=== PATIENT | female | born 1940 | race Caucasian/White ===

== ENCOUNTER → 2016-08-12 | Outpatient (CLI) | payer MEDICARE ==
[~2016-08-12] MED LIST: 'XANAX0.25 MG; ALLOPURINOL100 MG; AMLODIPINE10 MG; ASPIRIN81 M1; BENAZEPRIL40 MG; COLCHICINE0.6 MG; FAMOTIDINE20 MG; FUROSEMIDE40 MG; INDOMETHACIN25 MG; KLOR-CON M2020 MEQ; NORVASC5 MG; PRILOSEC20 M1 PO; PROVENTIL0.09 MG/AC; SIMVASTATIN20 MG; [UNRECOGNIZED DRUG - REMARK]
[2016-08-12 10:08] LABS: FOLIC ACID 15.4 ng/mL (>5.38)
[2016-08-13 09:06] LABS: RHEUMATOID ARTHRITIS FACTOR <10.0 IU/mL (0.0-13.9)
[2016-08-13 12:07] LABS: SJOGREN ANTI-SS-A <0.2 AI (0.0-0.9); SJOREN AB, ANTI-SS-B <0.2 AI (0.0-0.9)
[2016-08-13 15:07] LABS: ANGIOTENSIN-CONVERTING ENZYME 31 U/L (14-82)
[2016-08-13 16:09] LABS: A/G RATIO 1.3 (0.7-1.7); ALBUMIN 3.5 g/dL (2.9-4.4); ALPHA-1-GLOBULIN 0.2 g/dL (0.0-0.4); BETA GLOBULIN 1.1 g/dL (0.7-1.3); FREE KAPPA LIGHT CHAINS 35.01 mg/L (3.30-19.40); FREE LAMBDA LIGHT CHAINS 22.89 mg/L (5.71-26.30); GAMMA GLOBULIN 0.9 g/dL (0.4-1.8); GLOBULIN, TOTAL 2.9 g/dL (2.2-3.9); KAPPA/LAMBDA RATIO 1.53 (0.26-1.65); M-SPIKE Not Observed g/dL (Not Observed); TOTAL PROTEIN, SERUM 6.4 g/dL (6.0-8.5)
== END | disposition home or self-care (01) ==
LOC: LAB 08:13
PROVIDERS: Psychiatry & Neurology Neurology
DX: Z79.899 Other long term (current) drug therapy (principal)

== ENCOUNTER 2016-11-14 09:24 | Emergency (ER) | payer MEDICARE ==
[~2016-11-14] VITALS: Ht 149.8 cm; Wt 78.0 kg
[2016-11-14 09:27] VITALS: BP 213/96
[2016-11-14] MEDS ORDERED: LOSARTAN POTASS1 TA6 PO (09:34)
[2016-11-14] MEDS ORDERED: ZEBETA10 MG PO (09:35)
[2016-11-14] MEDS ORDERED: ANTIBIOTIC O500 U/GM T (10:32)
[2016-11-14] MEDS ORDERED: KEFLEX500 M1 PO (10:32)
== END 2016-11-14 10:54 | disposition home or self-care (01) ==
LOC: ED 09:24
DX: S01.83XA Puncture wound without foreign body of other part of head, initial encounter (principal); R03.0 Elevated blood-pressure reading, without diagnosis of hypertension; W01.0XXA Fall on same level from slipping, tripping and stumbling without subsequent striking against object, initial encounter; Y93.89 Activity, other specified; Y92.89 Other specified places as the place of occurrence of the external cause; Y99.8 Other external cause status

== ENCOUNTER 2017-06-27 16:27 | Emergency (ER) | payer MEDICARE ==
[~2017-06-27] VITALS: Ht 160 cm; Wt 78.0 kg
--- NOTE | ~2017-06-27 | EKG ---
[place], [place] ELECTROCARDIOGRAM REPORT NAME: DONATO WEIR UNIT #: [id number] ROOM: DOCTOR: MUSA MANNING,KAYY BIRTHDATE: [birth year] DOS: 06/27/2017 TIME: 1641 hours. IMPRESSION: 1. Sinus rhythm. 2. Supraventricular ectopy. 3. Nonspecific ST-T changes. 4. Abnormal R-wave progression. 5. LV hypertrophy. KAYY VIGIL MD CM:EKGRPT:ELECTROCARDIOGRAM REPORT [id number] KAYY VIGIL MD
[~2017-06-27 16:27] MED LIST changes: +ANTIBIOTIC O500 U/GM T; +KEFLEX500 M1 PO; +LOSARTAN POTASS1 TA6 PO; +ZEBETA10 MG PO
[2017-06-27 16:54] LABS: BASO % 0.3 % (0.0-1.0); EOS # 0.3 10*3/uL (0.0-0.4); EOS % 3.1 % (1.0-4.0); HEMATOCRIT 41.6 % (37.0-47.0); HEMOGLOBIN 13.9 g/dl (12.0-16.0); LYMPH # 3.2 10*3/uL (1.3-4.4); MEAN CELL VOLUME 88.9 fl (81.0-99.0); MEAN CORPUSCULAR HGB 29.7 pg (27.0-31.0); MEAN CORPUSCULAR HGB CONC 33.4 g/dl (33.0-37.0); MEAN PLATELET VOLUME 10.3 fl (9.6-12.3); MONO # 0.7 10*3/uL (0.1-1.0); MONO % 6.9 % (3.0-9.0); NEUT # 6.3 10*3/uL (2.3-7.9); NEUT % 59.4 % (47.0-73.0); PLATELET COUNT AUTOMATED 250 10*3/uL (130-400); RED BLOOD COUNT 4.68 10*6/uL (4.10-5.10); RED CELL DISTRI WIDTH 13.2 % (0-14.5); WHITE BLOOD COUNT 10.7 10*3/uL (4.8-10.8)
[2017-06-27 17:00] VITALS: BP 190/96
[2017-06-27 17:08] LABS: ACT PARTIAL THROMBO TIME 25.3 SECONDS (20.8-31.5)
[2017-06-27 17:10] LABS: ALBUMIN 3.4 gm/dl (3.1-4.5); ALKALINE PHOSPHATASE 80 U/L (45-117); BUN 25 mg/dl (7-24); CHLORIDE 103 mmol/L (98-107); CREATININE 0.95 mg/dL (0.55-1.02); LIPASE 219 U/L (73-393); POTASSIUM 3.8 mmol/L (3.5-5.1); SGOT/AST 19 IU/L (3-35); SGPT/ALT 20 U/L (12-78); SODIUM 139 mmol/L (136-145); TOTAL PROTEIN 7.4 gm/dL (6.4-8.2)
[2017-06-27 17:13] LABS: TROPONIN I < 0.015 ng/ml (<0.045)
== END 2017-06-27 17:37 | disposition short-term general hospital (02) ==
LOC: ED 16:27
PROVIDERS: Emergency Medicine
DX: I62.9 Nontraumatic intracranial hemorrhage, unspecified (principal); Z79.899 Other long term (current) drug therapy; Z95.1 Presence of aortocoronary bypass graft

== ENCOUNTER → 2017-12-06 | Outpatient (CLI) | payer MEDICARE | END | disposition home or self-care (01) | LOC: RAD 15:30 | DX: M47.896 Other spondylosis, lumbar region (principal); M51.36 Other intervertebral disc degeneration, lumbar region; M99.03 Segmental and somatic dysfunction of lumbar region ==

== ENCOUNTER → 2018-04-26 | Outpatient (CLI) | payer MEDICARE | END | disposition home or self-care (01) | LOC: RAD 10:02 | DX: M51.36 Other intervertebral disc degeneration, lumbar region (principal); M47.896 Other spondylosis, lumbar region; R42 Dizziness and giddiness ==

== ENCOUNTER → 2018-05-15 | Outpatient (CLI) | payer MEDICARE | END | disposition home or self-care (01) | LOC: RAD 14:47 | DX: C64.1 Malignant neoplasm of right kidney, except renal pelvis (principal); J44.9 Chronic obstructive pulmonary disease, unspecified; Z98.890 Other specified postprocedural states ==

== ENCOUNTER → 2019-06-05 | Outpatient (CLI) | payer MEDICARE ==
[2019-06-05 15:43] LABS: ALBUMIN 3.4 gm/dl (3.1-4.5); ALKALINE PHOSPHATASE 92 U/L (45-117); BUN 27 mg/dl (7-24); CHLORIDE 106 mmol/L (98-107); CREATININE 1.07 mg/dL (0.55-1.02); POTASSIUM 4.3 mmol/L (3.5-5.1); SGOT/AST 21 IU/L (3-35); SGPT/ALT 21 U/L (12-78); SODIUM 144 mmol/L (136-145); TOTAL PROTEIN 7.4 gm/dL (6.4-8.2)
== END | disposition home or self-care (01) ==
LOC: LAB 13:31
PROVIDERS: Internal Medicine
DX: I10 Essential (primary) hypertension (principal)

== ENCOUNTER → 2019-11-27 | Outpatient (CLI) | payer MEDICARE | END | disposition home or self-care (01) | LOC: CT 11:00 | DX: J98.11 Atelectasis (principal); N20.0 Calculus of kidney; C64.1 Malignant neoplasm of right kidney, except renal pelvis; I51.7 Cardiomegaly; I25.10 Atherosclerotic heart disease of native coronary artery without angina pectoris; I70.0 Atherosclerosis of aorta; K57.30 Diverticulosis of large intestine without perforation or abscess without bleeding; Z90.5 Acquired absence of kidney ==

== ENCOUNTER 2020-02-15 11:41 | Inpatient (IN) | payer MEDICARE ==
[~2020-02-15] VITALS: Ht 149.8 cm; Wt 91.0 kg
[~2020-02-15 11:41] MED LIST changes: -ADVAIR HFA 115-12 GM INH; -ALBUTEROL2.5 MG/0.5 INH; -ALLOPURINOL300 MG PO; -AMLODIPINE BESYL5 MG PO; -ASPIRIN ADULT L81 M1 PO; -ATORVASTATIN CA40 M1 PO; -CYMBALTA30 MG PO; -DIOVAN320 MG PO; -ELIQUIS5 M1 PO; -HYDROCODONE-AC1 EAC1 PO; -MAGNESIUM500 MG PO; -METOPROLOL SUC100 M1 PO; -NYSTATIN1 EAC3 MC; -OMEPRAZOLE MAGN20 MG PO; -OMEPRAZOLE20 M2 PO; -VITAMIN D350 MC1 PO
[2020-02-15 12:35] VITALS: BP 104/47
[2020-02-15 13:31] LABS: BASO # 0.1 10*3/uL (0.0-0.1); BASO % 0.4 % (0.0-1.0); EOS # 0.1 10*3/uL (0.0-0.4); EOS % 0.9 % (1.0-4.0); HEMATOCRIT 31.2 % (37.0-47.0); LYMPH # 1.3 10*3/uL (1.3-4.4); LYMPH % 10.4 % (27.0-41.0); MEAN CELL VOLUME 93.7 fl (81.0-99.0); MEAN CORPUSCULAR HGB 26.1 pg (27.0-31.0); MEAN CORPUSCULAR HGB CONC 27.9 g/dl (33.0-37.0); MEAN PLATELET VOLUME 10.2 fl (9.6-12.3); MONO # 0.8 10*3/uL (0.1-1.0); NEUT # 10.2 10*3/uL (2.3-7.9); NEUT % 81.9 % (47.0-73.0); PLATELET COUNT AUTOMATED 296 10*3/uL (130-400); RED BLOOD COUNT 3.33 10*6/uL (4.10-5.10); RED CELL DISTRI WIDTH 16.9 % (0-14.5); WHITE BLOOD COUNT 12.5 10*3/uL (4.8-10.8)
[2020-02-15 13:51] LABS: ALBUMIN 3.1 gm/dl (3.1-4.5); ALKALINE PHOSPHATASE 77 U/L (45-117); BUN 21 mg/dl (7-24); CHLORIDE 107 mmol/L (98-107); CREATININE 0.92 mg/dL (0.55-1.02); POTASSIUM 4.4 mmol/L (3.5-5.1); SGOT/AST 15 IU/L (3-35); SGPT/ALT 26 U/L (12-78); SODIUM 146 mmol/L (136-145); TOTAL PROTEIN 6.7 gm/dL (6.4-8.2)
[2020-02-15] MEDS ORDERED: AMLODIPINE BESYL5 MG PO (17:27)
[2020-02-15] MEDS ORDERED: ATORVASTATIN CA40 M1 PO (17:27)
[2020-02-15] MEDS ORDERED: OMEPRAZOLE MAGN20 MG PO (17:29)
[2020-02-15] MEDS ORDERED: ALLOPURINOL300 MG PO (17:31)
[2020-02-15] MEDS ORDERED: DIOVAN320 MG PO (17:31)
[2020-02-15] MEDS ORDERED: METOPROLOL SUC100 M1 PO (17:32)
[2020-02-15] MEDS ORDERED: ADVAIR HFA 115-12 GM INH (17:34)
[2020-02-15] MEDS ORDERED: CYMBALTA30 MG PO (17:34)
[2020-02-15] MEDS ORDERED: ALBUTEROL2.5 MG/0.5 INH (17:36)
[2020-02-15] MEDS ORDERED: ELIQUIS5 M1 PO (17:37)
[2020-02-15] MEDS ORDERED: HYDROCODONE-AC1 EAC1 PO (17:37)
[2020-02-15 17:39] VITALS: BP 106/52
[2020-02-15] MEDS ORDERED: NYSTATIN1 EAC3 MC (17:48)
[2020-02-15] MEDS ORDERED: OMEPRAZOLE20 M2 PO (17:49)
--- NOTE | 2020-02-15 18:09 | NUR ---
MSTime: 1800 A 79 year old FEMALE admitted to 5E under services of ROSETTA BOSCH DO. Pt. arrived via wheel chair from ER. Chief complaint: FALL. PNEUMONIA. JOEL MORRISON.
[2020-02-15 18:14] VITALS: BP 138/72
--- NOTE | 2020-02-15 18:35 | NUR ---
PT REFUSED ORTHO'S DUE TO UNABLE TO STAND AT THIS TIME.
--- NOTE | 2020-02-15 19:05 | NUR ---
MED REC UPDATED PER POLICY.
[2020-02-15] MEDS ORDERED: MAGNESIUM500 MG PO (19:27)
[2020-02-15] MEDS ORDERED: VITAMIN D350 MC1 PO (19:29)
[2020-02-15] MEDS ORDERED: ASPIRIN ADULT L81 M1 PO (19:30)
--- NOTE | 2020-02-15 19:33 | NUR ---
NOTIFIED REGARDING UPDATED MED LIST.
[2020-02-15 20:00] VITALS: BP 117/84
--- NOTE | 2020-02-15 20:00 | NUR ---
ASSISTED TO BATHROOM AND BACK TO BED WITH WHEELCHAIR. OXYGEN IN USE. NO C/O AT THIS TIME. CALL LIGHT IN REACH. BED ALARM ON.
--- NOTE | 2020-02-15 21:05 | NUR ---
PT TOLERATED ROUTINE MED WITH NO PROBLEM. GAVE BOX LUNCH. CALL LIGHT IN REACH. BED ALARM ON.
--- NOTE | 2020-02-15 21:26 | NUR ---
PT ASSISTED TO BATHROOM AND BACK TO BED WITH WHEELCHAIR. OXYGEN IN USE. PT C/O LEFT ELBOW PAIN, RATES 1 ON PAIN SCALE 0-10. MEDICATED WITH NORCO PO PER PRN ORDER, SEE EMAR. CALL LIGHT IN REACH. BED ALARM ON.
--- NOTE | 2020-02-15 22:15 | NUR ---
PT STATES MEDICATION EFFECTIVE. CALL LIGHT IN REACH. BED ALARM ON.
[2020-02-16] VITALS: BP 118/58
--- NOTE | 2020-02-16 00:10 | NUR ---
PT RESTING IN BED WITH EYES CLOSED. RESP-EASY AND REGULAR. OXYGEN IN USE. CALL LIGHT IN REACH. SEE SHIFT ASSESSMENT.
--- NOTE | 2020-02-16 05:42 | NUR ---
PT AMBULATORY TO BATHROOM WITH WALKER. OXYGEN IN USE. BACK TO BED. TOLERATED ROUTINE MED WITH NO PROBLEM. CALL LIGHT IN REACH. BED ALARM ON.
[2020-02-16 07:42] LABS: BASO % 0.3 % (0.0-1.0); EOS # 0.2 10*3/uL (0.0-0.4); EOS % 1.8 % (1.0-4.0); HEMATOCRIT 30.5 % (37.0-47.0); LYMPH # 1.4 10*3/uL (1.3-4.4); LYMPH % 12.1 % (27.0-41.0); MEAN CELL VOLUME 91.6 fl (81.0-99.0); MEAN CORPUSCULAR HGB 25.8 pg (27.0-31.0); MEAN CORPUSCULAR HGB CONC 28.2 g/dl (33.0-37.0); MONO # 0.9 10*3/uL (0.1-1.0); MONO % 7.2 % (3.0-9.0); NEUT # 9.3 10*3/uL (2.3-7.9); NEUT % 78.2 % (47.0-73.0); PLATELET COUNT AUTOMATED 276 10*3/uL (130-400); RED BLOOD COUNT 3.33 10*6/uL (4.10-5.10); RED CELL DISTRI WIDTH 16.5 % (0-14.5); WHITE BLOOD COUNT 11.9 10*3/uL (4.8-10.8)
[2020-02-16 08:00] VITALS: BP 116/72
[2020-02-16 08:06] LABS: BUN 21 mg/dl (7-24); CHLORIDE 109 mmol/L (98-107); CREATININE 0.91 mg/dL (0.55-1.02); POTASSIUM 4.3 mmol/L (3.5-5.1); SODIUM 148 mmol/L (136-145)
--- NOTE | 2020-02-16 08:07 | NUR ---
IN TO SEE PATIENT AT THIS TIME.
--- NOTE | 2020-02-16 10:23 | NUR ---
ORTHOS PERFORMED PER ORDER. LAYING BP 122/61. HR 70 SITTING BP 124/84. HR 77 STANDING BP 140/53. HR 77 PT ASYMPTOMATIC. WILL CONTINUE TO MONITOR.
--- NOTE | 2020-02-16 11:31 | NUR ---
'S ANSWERING SERVICE CALLED REGARDING CONSULT.
--- NOTE | 2020-02-16 11:46 | NUR ---
Director Of District Office in to talk to patient. Patient states lives at HOME with . There are FEW\ steps in the home. Physician: EMRE Pharmacy: [facility] Home health services: [facility] Patient's level of ADLs: MINIMAL ASSIST Patient has working utilities: YES DME: OXYGEN THRU [facility] Follow-up physician's appointment after d/c: WILL BE MADE BY HOSPITALIST NURSE DIRECTOR ON DISCHARGE Does patient want to access PORTAL?: NO Discharge plan PT LIVES AT HOME WITH HER AND NEED MINIMAL ASSISTANCE WITH ADL'S. STATES HE HAS [facility] AND OXYGEN WITH [facility]. DISCUSSED SNF WITH PT DUE TO FALL BUT SHE DECLINES. PT STATES SHE HAS AN APPOINTMENT FOR TEST ON TUESDAY AT [facility] FOR TESTING AND WANTS TO GO HOME TO GO TO IT. WILL CONTINUE TO FOLLOW. PT STATES HER WILL TAKE HER HOME. JATIN LIMA
[2020-02-16 12:00] VITALS: BP 112/68
--- NOTE | 2020-02-16 12:32 | NUR ---
IN TO SEE PATIENT REGARDING CONSULT.
[2020-02-16 16:00] VITALS: BP 112/48
--- NOTE | 2020-02-16 18:39 | NUR ---
PATIENT SITTING UP ON SIDE OF BED, EATING DINNER. NO VOICED COMPLAINTS. O2 IN USE VIA 3.5LNC. NO VOICED COMPLAINTS AT THIS TIME. WILL MONITOR. CALL LIGHT WITHIN REACH.
--- NOTE | 2020-02-16 19:30 | NUR ---
IN TO ASSESS PATIENT, PATIENT ALERT AND ORIENTED AND PLEASANT. NO COMPLAINTS AT THIS TIME. BREATHING IS EASY AND REGULAR ON 4L WHICH PATIENT STATES SHE IS DEPENDENT ON AT HOME. PATIENT WITH 3+ BLE EDEMA. PATIENT STATES SHE DOES GET SHORT OF BREATH WITH EXERTION. PATIENT DENIES ANY CP/SOB AT REST, DENIES N/V/D/C. NO COMPLAINTS AT THIS TIME. PATIENT AMBULATORY TO RESTROOM WITH WALKER. CALL LIGHT WITHIN REACH, WILL MONITOR
[2020-02-16 20:00] VITALS: BP 126/80
--- NOTE | 2020-02-16 23:09 | NUR ---
PATIENT SLEEPING, NO DISTRESS NOTED. CALL LIGHT WITHIN REACH, WILL MONITOR
[2020-02-17] VITALS: BP 123/52
--- NOTE | 2020-02-17 00:14 | NUR ---
24 HR chart check completed.
--- NOTE | 2020-02-17 00:30 | NUR ---
ASSISTED PATIENT UP TO REST ROOM AT THIS TIME
--- NOTE | 2020-02-17 01:01 | NUR ---
PATIENT SLEEPING, NO DISTRESS NOTED. BREATHING IS EASY AND REGULAR WITH O2 INTACT. CALL LIGHT WITHIN REACH, WILL MONITOR
--- NOTE | 2020-02-17 06:14 | NUR ---
BROUGHT RECLINER IN TO PATIENTS ROOM PATIENT STATED THAT SHE WOULD LIKE TO SIT UP IN THE RECLINER A LITTLE LATER TODAY
[2020-02-17 07:22] LABS: ALKALINE PHOSPHATASE 73 U/L (45-117); BUN 25 mg/dl (7-24); CHLORIDE 104 mmol/L (98-107); CREATININE 1.03 mg/dL (0.55-1.02); POTASSIUM 3.9 mmol/L (3.5-5.1); SGOT/AST 18 IU/L (3-35); SGPT/ALT 25 U/L (12-78); SODIUM 147 mmol/L (136-145); TOTAL PROTEIN 6.5 gm/dL (6.4-8.2)
[2020-02-17 07:33] LABS: BASO % 0.2 % (0.0-1.0); EOS # 0.2 10*3/uL (0.0-0.4); HEMATOCRIT 31.2 % (37.0-47.0); LYMPH # 1.6 10*3/uL (1.3-4.4); LYMPH % 8.2 % (27.0-41.0); MEAN CELL VOLUME 89.9 fl (81.0-99.0); MEAN CORPUSCULAR HGB 26.2 pg (27.0-31.0); MEAN CORPUSCULAR HGB CONC 29.2 g/dl (33.0-37.0); MEAN PLATELET VOLUME 11.2 fl (9.6-12.3); MONO # 1.5 10*3/uL (0.1-1.0); MONO % 7.8 % (3.0-9.0); NEUT # 15.8 10*3/uL (2.3-7.9); NEUT % 81.9 % (47.0-73.0); NUCLEATED RED BLOOD CELL 0.1 % (0.0-0.0); PLATELET COUNT AUTOMATED 294 10*3/uL (130-400); RED BLOOD COUNT 3.47 10*6/uL (4.10-5.10); RED CELL DISTRI WIDTH 16.5 % (0-14.5); WHITE BLOOD COUNT 19.2 10*3/uL (4.8-10.8)
--- NOTE | 2020-02-17 07:40 | NUR ---
PATIENT HAD UNWITNESSED FALL AT THIS TIME. NO VISIBLE INJURIES. VITALS STABLE. PATIENT STATES SHE STOOD UP AND SLID OUT OF THE BED, HITTING THE SIDE OF HER HEAD ON THE SIDERAIL. PATIENT AWAKE & ALERT. NOTIFIED , REMOTE CONTROL MIRROR INSTALLER, AND . SMALL SKIN TEARS NOTED TO RIGHT FOREHEAD AND BELOW RIGHT EYE. ECCHYMOTIC SPOT ON LIP WITH NO OPEN AREA NOTED. CALL LIGHT IS WITHIN REACH.
[2020-02-17 08:00] VITALS: BP 142/71
--- NOTE | 2020-02-17 11:00 | NUR ---
AWARE OF CONSULT. IN TO SEE PATIENT. ORDERS OBTAINED.
[2020-02-17 12:00] VITALS: BP 142/65
[2020-02-17 12:10] LABS: ABG BASE EXCESS 13.2 mmol/L (-2.0-2.0); ARTERIAL BLOOD GAS PH 7.316 (7.35-7.45)
[2020-02-17 15:22] LABS: ABG BASE EXCESS 13.5 mmol/L (-2.0-2.0); ARTERIAL BLOOD GAS PH 7.374 (7.35-7.45)
--- NOTE | 2020-02-17 15:38 | NUR ---
COMPADIANA PLACED ON BIPA PER DR FLEMING'S ORDERS. BIPAP SET AT 18/8 WITH A 4L BLEED IN. DOCTOR ALERTED TO ABG ORDERS AND AK THAT SHE WEAR IT MUCH POSIBLE EXCEPT FOR MEALS.
[2020-02-17 16:00] VITALS: BP 122/63
--- NOTE | 2020-02-17 17:30 | NUR ---
PATIENT LYING IN BED WITH BIPAP ON. NEW IV #22 INSERTED INTO RIGHT HAND. PT TOLERATED WELL AFTER 3 OTHER ATTEMPTS.
--- NOTE | 2020-02-17 19:30 | NUR ---
IN TO ASSESS PATIENT. PATIENT IS ALERT AND ORIENTED AT THIS TIME TO PERSON PLACE AND TIME. PATIENT EXPLAINED WHAT HAPPENED WITH HER FALL THIS MORNING. AND STATED SHE SHOULD HAVE WAITED TO GET UP BUT HAD TO GO TO THE BATHROOM SO BAD. PATIENT ON 4L NC AND REQUESTING SOMETHING TO EAT BEFORE SHE GETS ON THE BIPAP. SHE STATED THAT SHE JUST GOT HER BIPAP AT HOME MAYBE A WEEK AGO AND HAS TROUBLE WEARING AT NIGHT WHEN SHE'S SUPPOSED TO. EDEMA STILL NOTED TO LOWER EXTREMITIES. BANDAID INTACT TO ABRASION TO FOREHEAD. PATIENT STATES IT ONLY HURTS IF SHE TOUCHES IT. BREATHING IS EASY AND REGULAR AT THIS TIME AND HAS NO COMPLAINTS. CALL LIGHT WITHIN REACH, WILL MONITOR
[2020-02-17 20:00] VITALS: BP 130/69
--- NOTE | 2020-02-17 20:31 | NUR ---
SPOKE WITH DR. BAXTER AT THIS TIME. NOTIFIED HIM OF PATIENT BEING ON ELIQUIS AND HAVING A FALL EARLIER TODAY AND HIT HER HEAD. NOTIFIED HIM OF PATIENTS CT RESULTS AFTER FALL AND THAT THE PATIENT IS ON ELIQUIS FOR HISTORY OF AFIB WHICH SHE IS CURRENTLY IN NORMAL SINUS WITH PAC'S. INQUIRED ABOUT WHETHER HE WOULD LIKE THIS NURSE TO HOLD HER ELIQUIS FOR THE NIGHT. ALSO NOTIFIED HIM OF NO ACTIVE BLEEDING WHERE THE PATIENT HAS AN ABRASION WHERE SHE HIT HER HEAD. DR. BAXTER STATED THAT IT WOULD BE OK TO GIVE THE ELIQUIS THERE ARE NO INTERNAL ISSUES ON HER CT
--- NOTE | 2020-02-17 23:30 | NUR ---
PATIENT PLACED ON BIPAP AT THIS TIME BY RESPIRATORY
[2020-02-18] VITALS: BP 156/67
--- NOTE | 2020-02-18 03:23 | NUR ---
PATIENT CONTINUES TO SLEEP ON BIPAP AT THIS TIME. NO DISTRESS NOTED. CALL LIGHT WITHIN REACH
--- NOTE | 2020-02-18 04:15 | NUR ---
24 HR chart check completed.
[2020-02-18 07:09] LABS: BASO % 0.2 % (0.0-1.0); EOS # 0.2 10*3/uL (0.0-0.4); EOS % 1.1 % (1.0-4.0); HEMATOCRIT 29.1 % (37.0-47.0); LYMPH # 1.8 10*3/uL (1.3-4.4); LYMPH % 9.5 % (27.0-41.0); MEAN CORPUSCULAR HGB 26.9 pg (27.0-31.0); MEAN CORPUSCULAR HGB CONC 31.3 g/dl (33.0-37.0); MEAN PLATELET VOLUME 11.8 fl (9.6-12.3); MONO # 1.3 10*3/uL (0.1-1.0); MONO % 6.9 % (3.0-9.0); NEUT % 81.1 % (47.0-73.0); PLATELET COUNT AUTOMATED 273 10*3/uL (130-400); RED BLOOD COUNT 3.38 10*6/uL (4.10-5.10); WHITE BLOOD COUNT 18.5 10*3/uL (4.8-10.8)
[2020-02-18 07:12] LABS: MEAN CELL VOLUME 86.1 fl (81.0-99.0)
[2020-02-18 07:13] LABS: ALBUMIN 2.8 gm/dl (3.1-4.5); ALKALINE PHOSPHATASE 69 U/L (45-117); BUN 22 mg/dl (7-24); CHLORIDE 102 mmol/L (98-107); CREATININE 0.86 mg/dL (0.55-1.02); SGOT/AST 27 IU/L (3-35); SGPT/ALT 21 U/L (12-78); SODIUM 144 mmol/L (136-145); TOTAL PROTEIN 6.1 gm/dL (6.4-8.2)
[2020-02-18 08:00] VITALS: BP 136/71
--- NOTE | 2020-02-18 08:00 | NUR ---
DONATO WEIR [id number] Please refer to the physician's history and physical for past medical history, comorbid conditions, and allergies. Diagnosis: COMMUNITY ACQUIRED PNEUMONIA Teo Score: 16,AT RISK WOUND DESCRIPTIONS: This nurse along with with Lashell Clement RN evaluated patient for skin impairments. Wound Number: 1 Location of the wound: bilateral breast pink and blanchable at time of assessment. No open areas noted at time of assessment. No drainage noted at time of assessment. No odor at time of assessment. How does patient state this happened? pt states this has been going on since november Wound Number: 2 Location of the wound: left groin red and blanchable at time of assessment. No open areas noted at time of assessment. No drainage noted at time of assessment. Musty odor at time of assessment. How does patient state this happened? pt states this has been going on since november Wound Number:3 right de leon intact scabbed noted. No open areas noted at time of assessment. No drainage noted at time of assessment. No redness surrounding area at time of assessment. Wound Number: 4 Location of the wound: right forehead Type of wound: traumatic Thickness: Partial Size: 1.1cm x 1.7cm x 0.1cm Tunneling: none Undermining: none Sinus Tract: none Presence of Exudate: Serosanguineous Amount: Light Color: Red Odor: None Periwound Skin Appearance: Normal Wound edges: approximated Pain (associated with wound): none at time of assessment How does patient state this happened? pt states this was from her fall yesterday Wound Number: 5 Location of the wound: below right eye ecchymotic area noted at time of assessment. No drainage noted at time of assessment. Pt states this is from her fall yesterday. Wound Number: 6 Location of the wound: bottom lip red and purple in color. No open areas noted at time of assessment. No drainage noted at time of assessment. Pt states this is from her fall yesterday Surface the patient is resting on: Isoflex SKIN PREVENTION RECOMMENDATION: 1. Pressure redistribution support surface as appropriate 2. Elevate heels 3. Remove boots/TEDS every shift and reapply 4. Head of bed 30 degrees as tolerated 5. Assess nutrition and hydration 6. Manage moisture 7. Avoid the use of containment devices while in bed 8. Use absorptive products on surfaces limit layers of linens on bed 9. Turn and reposition every 1-2 hours in bed and every 1 hour in chair as tolerated 10. Weight shifts every 15 minutes while up in chair 11. Offloading with pillows or device to keep heels elevated off bed 12. Monitor skin at least every shift 13. Inspect under medical devices twice a day WOUND TREATMENT RECOMMENDATIONS: Continue nystatin powder every 12 hours to bilateral breasts and left groin. Cleanse right forehead with nss and apply bactroban ointment bid leave open to air.
[2020-02-18 08:02] LABS: ABG BASE EXCESS 16.4 mmol/L (-2.0-2.0); ARTERIAL BLOOD GAS PH 7.388 (7.35-7.45)
--- NOTE | 2020-02-18 08:06 | NUR ---
ABGS DRAWN THIS AM, PT HAD JUST RETURNED FROM CT STATING SHE WORE HER BIPAP ALL NIGHT. AT THE TIME OF THE ABG SHE WAS ON 4L NC IN NO DISTRESS.
--- NOTE | 2020-02-18 09:06 | NUR ---
MASTER MOTORCYCLE TECHNICIAN IN TO SPEAK WITH THE PATIENT. PATIENT STATED THAT SHE FELL OVER THE WEEKEND IN THIS FACILITY. PATIENT STATED SHE IS SUPPOSED TO HAVE AN OUTPATIENT COLO AT [facility] TODAY, BUT UNDERSTANDS SHE WILL LIKELY MISS HER APPOINTMENT. MASTER MOTORCYCLE TECHNICIAN SPOKE WITH THE PATIENT ABOUT SNF. SHE STATED SHE WANTED TO SPEAK WITH HER BEFORE MAKING A DECISION. MASTER MOTORCYCLE TECHNICIAN EXPLAINED WOULD FOLLOW UP WITH HER LATER ON THIS MORNING. PATIENT CURRENTLY HAS [facility].
--- NOTE | 2020-02-18 10:41 | NUR ---
Dr. Nino notified of wound care recommendations.
--- NOTE | 2020-02-18 11:41 | NUR ---
PHYSICAL THERAPY Physical Therapy evaluation completed on with full evaluation to follow. Recommend physical therapy per plan of care and SNF upon discharge. Thank you for this referral. Claude Swan SPT Adele Paul PT
--- NOTE | 2020-02-18 11:42 | NUR ---
11:30 PT PLACED ON BIPAP. RESPS REGULAR AND UNLABORED. PT OOB IN CAHIR. SYSTEM CHECKED AND FX'ING.
[2020-02-18 12:00] VITALS: BP 116/48
--- NOTE | 2020-02-18 13:30 | NUR ---
EATING LUNCH, NOT AVAILABLE FOR ECHO.
--- NOTE | 2020-02-18 14:46 | NUR ---
STATEMENT PROCESSOR SPOKE WITH THE PATIENT ABOUT SNF. PATIENT STATED TO CALL HER . STATEMENT PROCESSOR SPOKE WITH . PATIENTS STATED "I HAVE NO HILLARY IN YOU GUYS, I HAVE NOT HEARD ANYTHING SINCE WE BROUGHT HER IN ON TUESDAY." PATIENTS IS VERY UPSET. PATIENTS STATED HE DOES NOT WANT HER IN A SNF. PATIENTS IS CONCERNED WITH HER INTERNAL BLEEDING. STATEMENT PROCESSOR ATTEMPTED TO EXPLAIN PER RECENT NOTE HER LEVELS ARE STABLE. PATIENTS IS REQUESTING A DR CALL HIM. STATEMENT PROCESSOR SPOKE WITH RN HOSPITALIST COORDINATOR AALIYAH AND ASKED THAT THE ATTENDING DR CALL THE . PATIENT WILL RESUME [facility] UPON DISCHARGE.
[2020-02-18 16:00] VITALS: BP 113/61
[2020-02-18 20:00] VITALS: BP 127/60
--- NOTE | 2020-02-18 21:30 | NUR ---
Pt placed on Bipap with a 4L bleed in. No comps.
[2020-02-19] VITALS: BP 133/65
--- NOTE | 2020-02-19 04:55 | NUR ---
PATIENT REMAINS ON BIPAP, HAS VIOLA ON SINCE EARLIER THIS EVENING. TOLERATING WELL. BED ALARM SET FOR PATIENT SAFETY. RN WILL CONTINUE TO MONIOR
--- NOTE | 2020-02-19 05:47 | NUR ---
Recommend follow up for wound care in outpatient setting patient refused at this time.
[2020-02-19 06:58] LABS: BASO % 0.3 % (0.0-1.0); EOS # 0.2 10*3/uL (0.0-0.4); EOS % 1.6 % (1.0-4.0); HEMATOCRIT 31.8 % (37.0-47.0); LYMPH # 2.3 10*3/uL (1.3-4.4); LYMPH % 15.5 % (27.0-41.0); MEAN CORPUSCULAR HGB 26.2 pg (27.0-31.0); MEAN CORPUSCULAR HGB CONC 28.6 g/dl (33.0-37.0); MEAN PLATELET VOLUME 11.2 fl (9.6-12.3); MONO # 1.3 10*3/uL (0.1-1.0); MONO % 8.5 % (3.0-9.0); NEUT # 10.8 10*3/uL (2.3-7.9); NEUT % 73.5 % (47.0-73.0); PLATELET COUNT AUTOMATED 345 10*3/uL (130-400); RED BLOOD COUNT 3.47 10*6/uL (4.10-5.10); RED CELL DISTRI WIDTH 17.2 % (0-14.5); WHITE BLOOD COUNT 14.7 10*3/uL (4.8-10.8)
[2020-02-19 06:59] LABS: MEAN CELL VOLUME 91.6 fl (81.0-99.0)
--- NOTE | 2020-02-19 07:26 | NUR ---
TOOK PT OFF OF BIPAP
[2020-02-19 08:00] VITALS: BP 141/91
--- NOTE | 2020-02-19 08:22 | NUR ---
WALL COVERING INSTALLER RETURNED BRENDA ROBLES PHONE CALL TO [phone] AND LEFT A VOICE MAIL ASKING FOR A RETURN CALL.
--- NOTE | 2020-02-19 09:25 | NUR ---
eating breakfast, not available for echo.
[2020-02-19 10:41] LABS: BUN 27 mg/dl (7-24); CHLORIDE 97 mmol/L (98-107); CREATININE 0.96 mg/dL (0.55-1.02); POTASSIUM 3.2 mmol/L (3.5-5.1); SODIUM 141 mmol/L (136-145)
--- NOTE | 2020-02-19 10:55 | NUR ---
PHYSICAL THERAPY Patient seen this am 1;1 for therapy visit and was sitting up on EOB following OT evaluation. Patient identified by name / and was joined by OTR this session for observation. Patient was pleasant this morning, voicing c/o of chronic L knee pain, however unable to rate pain on 0-10 scale. Patient educated on safe step sequence while using wh walker and performed sit to stand transfer CGA x 1. Patient ambulated 20'x 1, wh walker, CGA, demonstrating slow, "step to" reggie. Patient needed v/c to improve safe walker navigation in tight room spaces and returned to bedside chair with increased fatigue. Patient tolerated all treatment reporting no new c/o's and remained semi reclined in chair with call light, tray table, telephone, body alarm for safety. Will continue per POC as tolerated, total treatment time 14 minutes. Neno Saldana, PERSONAL CARE AID
--- NOTE | 2020-02-19 11:00 | NUR ---
Occupational Therapy evaluation completed on five with full evaluation to follow. Recommend occupational therapy per plan of care and SNF upon discharge. Thank you for this referral. Sangita Grossman OTR/L
--- NOTE | 2020-02-19 11:12 | NUR ---
INDUSTRIAL MAINTENANCE INSTRUCTOR RECEIVED CALL FROM PATIENTS DAUGHTER IN LAW BRENDA WEIR. PER BRENDA, PATIENTS , AND THE PATIENT ARE AGREEABLE TO BE REFERRED TO [facility]. BRENDA STATED THAT SHE HAS ALREADY BEEN IN TOUCH WITH [facility] AND DISCUSSED THE POSSIBILITY OF APPLYING FOR MEDICAID. INDUSTRIAL MAINTENANCE INSTRUCTOR EXPLAINED THIS INDUSTRIAL MAINTENANCE INSTRUCTOR DISCUSSED WITH THE PATIENTS CODE STATUS DURING THE MORING HUDDLE AND THE DOCTOR WOULD BE SPEAKING WITH THE PATIENT ABOUT HER STATUS. INDUSTRIAL MAINTENANCE INSTRUCTOR WILL FAX REFERRAL TO [facility]. COVID RESULTS WILL BE NEEDED FOR PLACEMENT.
--- NOTE | 2020-02-19 11:50 | NUR ---
PATIENT STATES SHE DOES NOT WANT TO GO ON BI-PAP AT THIS TIME.
[2020-02-19 12:00] VITALS: BP 104/73
--- NOTE | 2020-02-19 12:35 | NUR ---
[facility] ASKED IF THE PATIENTS NEBULIZERS COULD BE SWITCHED TO INHALERS. MORTGAGE OR LOAN UNDERWRITER SPOKE WITH RN HOSPITALIST COORDINATOR AALIYAH ABOUT THIS.
--- NOTE | 2020-02-19 14:03 | NUR ---
PT PLACED ON BIPAP AT THIS TIME. PT IN BED RESTING COMFORTABLY. RESPS REGULAR AND UNLABORED. 4 L O2 BLEED ON. SYSTEM CHECKED AND FX'ING.
[2020-02-19 16:00] VITALS: BP 131/49
--- NOTE | 2020-02-19 16:49 | NUR ---
REMOVED BIPAP TO ADMINISTER PO DIAMOX AND POTASSIUM SUPPLEMENTS. PATIENT DROWSY AND HAVING JERKING BODY MOVEMENTS. CRUSHED PILLS IN PUDDING, PATIENT MORE ALERT AFTER THIS AND TOOK THE MEDS. STATES SHE WOULD LIKE TO EAT BEFORE GOING BACK ON BIPAP. SHE IS NOW EATING MEAL IN BED, ABLE TO ANSWER QUESTIONS APPROPRIATELY, NO FURTHER JERKING MOVEMENTS NOTED.
--- NOTE | 2020-02-19 19:30 | NUR ---
PATIENT RESTING QUIETLY IN BED, EYES CLSOED. BIPAP MAINTAINED PER SETTINGS TOLERATED WELL. SPO2 MID-HIGH 90'S. BED IS LOCKED IN LOWEST POSITION, CALL LIGHT WITHIN REACH
[2020-02-19 20:00] VITALS: BP 141/46
[2020-02-19 23:52] VITALS: BP 100/50
--- NOTE | 2020-02-20 01:00 | NUR ---
PATIENT NOTED TO BED INCONT OF URINE, BRIEF SATURATED. PATIENT CLEANED, NO CARE PROVIDED, AND BEDDING CHANGED. PATIENT ASSISTED TO BSC AND THEN REPOSITIONED UP IN BED, BIPAP MAINTAINED. TOLERATED WELL.
[2020-02-20 06:00] VITALS: BP 100/60
--- NOTE | 2020-02-20 07:30 | NUR ---
PATIENT TAKEN OFF OF BI-PAP, PLACED ON 4 L/M.
--- NOTE | 2020-02-20 08:18 | NUR ---
COVID RESULTS ARE IN, PATIENT CAN GO TO [facility] SHE IS MEDICALLY STABLE.
--- NOTE | 2020-02-20 08:25 | NUR ---
HAND BUTTON SPLITTER COMPLETED HENS.
[2020-02-20 09:35] LABS: BASO # 0.1 10*3/uL (0.0-0.1); BASO % 0.4 % (0.0-1.0); EOS # 0.4 10*3/uL (0.0-0.4); EOS % 2.9 % (1.0-4.0); HEMATOCRIT 32.4 % (37.0-47.0); LYMPH # 1.6 10*3/uL (1.3-4.4); LYMPH % 12.5 % (27.0-41.0); MEAN CELL VOLUME 94.2 fl (81.0-99.0); MEAN CORPUSCULAR HGB 25.9 pg (27.0-31.0); MEAN CORPUSCULAR HGB CONC 27.5 g/dl (33.0-37.0); MEAN PLATELET VOLUME 10.6 fl (9.6-12.3); MONO # 0.9 10*3/uL (0.1-1.0); MONO % 7.2 % (3.0-9.0); NEUT # 9.7 10*3/uL (2.3-7.9); NEUT % 76.5 % (47.0-73.0); PLATELET COUNT AUTOMATED 307 10*3/uL (130-400); RED BLOOD COUNT 3.44 10*6/uL (4.10-5.10); RED CELL DISTRI WIDTH 17.2 % (0-14.5); WHITE BLOOD COUNT 12.7 10*3/uL (4.8-10.8)
[2020-02-20 09:48] LABS: CREATININE 1.2 mg/dL (0.55-1.02); POTASSIUM 3.7 mmol/L (3.5-5.1)
[2020-02-20 12:00] VITALS: BP 138/94
[2020-02-20] MEDS ORDERED: HYDROCODONE-AC1 EAC1 PO (12:21)
[2020-02-20] MEDS ORDERED: ACETAZOLAMIDE250 MG PO (12:21)
[2020-02-20] MEDS ORDERED: LOSARTAN POTAS100 M1 PO (12:21)
[2020-02-20] MEDS ORDERED: ALDACTONE25 MG PO (12:21)
[2020-02-20] MEDS ORDERED: DOXYCYCLINE100 M3 PO (12:21)
[2020-02-20] MEDS ORDERED: BUDESONIDE0.5 MG/2 M NEB (12:21)
[2020-02-20] MEDS ORDERED: LASIX40 MG PO (12:21)
--- NOTE | 2020-02-20 12:42 | NUR ---
WEBSPHERE PORTAL ARCHITECT SPOKE WITH LUÍS PALOMO ABOUT DISCHARGE. WEBSPHERE PORTAL ARCHITECT REACHED OUT TO [facility] AND ARRANGED FOR A 4PM TRANSPORT. WEBSPHERE PORTAL ARCHITECT SPOKE WITH LUÍS PALOMO, [facility], KIRBY BISHOP, AND ANDRY GUTIERREZ ABOUT DISCHARGE. WEBSPHERE PORTAL ARCHITECT FAXED DISCHARGE ORDERS TO [facility].
--- NOTE | 2020-02-20 13:15 | NUR ---
PHYSICAL THERAPY Patient seen this pm 1;1 for therapy visit and was resting supine in bed upon therapist arrival. Patient identified by name / and was joined by OT historian research assistant for observation this session. Patient presented with continuous O2-4.5 L via NC and transfers supine to sit EOB, then sit to stand with SBA. Patient ambulates with use of wh walker, CGA, 8'x 1 to BSC, then additional 20'x 1, ad rafy in room to EOB sit, demonstrating slow, cautious step sequence navigating in tight spaces. Patient needed v/c to improve walker safety during gait ex and transfers sit to supine CGA x 1. Patient remained in bed with call light, tray table, telephone and bed alarm for safety. Will continue per POC as tolerated, total treatment time 16 minutes. Neno Saldana, DIRECTOR GRAPHICS
--- NOTE | 2020-02-20 13:45 | NUR ---
OT NOTE Pt was seen this P.M. 1:1 for 15 minute OT session. Upon arrival pt was supine in bed. Pt identified by name and and had no complaints at this time. Pt presented to therapy with continuous 4.5L-O2 via NC which she remained on throughout the entire session. Pt transferred supine to sit EOB with CGA and use of bed rail for UE support. Sit to stand completed from bed level with CGA and use of w/w for UE support. Functional mobility was then completed to the bedside commode with CGA and use of w/w. There she transferred on to bedside commode with CGA and off with Chelsi. Upon inital rise from the bedside commode pt presented with retrograde posture that required Chelsi to correct. Clothing management completed with modA. Pt then transferred back into bed with CGA. There she was left with call light in hand, tray table in place, and bed alarm activated for safety. Continue with POC as able. MERCED Welch
--- NOTE | 2020-02-20 14:53 | NUR ---
DR. FLEMING NOTIFIED OF CHEST XRAY RESULT FROM THIS MORNING. OK TO PROCEED WITH DISCHARGE, PER DR. FLEMING, [facility] TO GET THE REPEAT CHEST XRAY ON TUESDAY. RADIOLOGY ORDER IS IN PACKET, INSTRUCTIONS UPDATED.
--- NOTE | 2020-02-20 15:04 | NUR ---
PREPARING PATIENT FOR DISCHARGE TO [facility] AT 4PM BY [facility].
[2020-02-20 16:00] VITALS: BP 110/82
--- NOTE | 2020-02-20 16:01 | NUR ---
REPORT CALLED TO RECEIVING NURSE AT [facility].
--- NOTE | 2020-02-20 16:39 | NUR ---
PATIENT DISCHARGED TO [facility] BY [facility] AT THIS TIME.
--- NOTE | 2020-02-21 07:43 | NUR ---
OCCUPATIONAL THERAPY CO-SIGN I approve of the Occupational Therapy notes written above. EMMANUELLE STOKES, OTR/L
--- NOTE | 2020-02-21 10:00 | NUR ---
PHYSICAL THERAPY CO-SIGN I approve of the Physical Therapy notes written above. JOAN GLOVER PT, DPT
== END 2020-02-20 18:20 | disposition other institution (70) | DRG 871 ==
LOC: ED 11:41 → EDHOLD 16:11 → 5E 16:11
PROVIDERS: Internal Medicine; Internal Medicine Critical Care Medicine; Student in an Organized Health Care Education/Training Program; ADMIT Emergency Medicine
PROC: 5A09357 Assistance with Respiratory Ventilation, Less than 24 Consecutive Hours, Continuous Positive Airway Pressure (ICD-10-PCS; principal; 2020-02-19)
PROC: 5A09357 Assistance with Respiratory Ventilation, Less than 24 Consecutive Hours, Continuous Positive Airway Pressure (ICD-10-PCS; 2020-02-20)
DX: A41.9 Sepsis, unspecified organism (principal); J18.9 Pneumonia, unspecified organism; G93.41 Metabolic encephalopathy; I50.33 Acute on chronic diastolic (congestive) heart failure; J96.22 Acute and chronic respiratory failure with hypercapnia; J96.21 Acute and chronic respiratory failure with hypoxia; Q79.1 Other congenital malformations of diaphragm; E87.0 Hyperosmolality and hypernatremia; I69.354 Hemiplegia and hemiparesis following cerebral infarction affecting left non-dominant side; J44.0 Chronic obstructive pulmonary disease with (acute) lower respiratory infection; E87.4 Mixed disorder of acid-base balance; Z68.41 Body mass index [BMI] 40.0-44.9, adult; R65.20 Severe sepsis without septic shock; I25.10 Atherosclerotic heart disease of native coronary artery without angina pectoris; I48.0 Paroxysmal atrial fibrillation; R91.1 Solitary pulmonary nodule; E66.01 Morbid (severe) obesity due to excess calories; R73.9 Hyperglycemia, unspecified; I34.0 Nonrheumatic mitral (valve) insufficiency; R91.8 Other nonspecific abnormal finding of lung field; E04.1 Nontoxic single thyroid nodule; R26.2 Difficulty in walking, not elsewhere classified; M19.90 Unspecified osteoarthritis, unspecified site; Z96.651 Presence of right artificial knee joint; D64.9 Anemia, unspecified; Z20.828 Contact with and (suspected) exposure to other viral communicable diseases; I70.0 Atherosclerosis of aorta; I11.0 Hypertensive heart disease with heart failure; S09.90XA Unspecified injury of head, initial encounter; W18.30XA Fall on same level, unspecified, initial encounter; Y93.89 Activity, other specified; Y92.098 Other place in other non-institutional residence as the place of occurrence of the external cause; Y99.8 Other external cause status; Z95.1 Presence of aortocoronary bypass graft; Z87.891 Personal history of nicotine dependence; Z82.49 Family history of ischemic heart disease and other diseases of the circulatory system; Z80.1 Family history of malignant neoplasm of trachea, bronchus and lung; Z79.82 Long term (current) use of aspirin; Z79.899 Other long term (current) drug therapy; Z79.01 Long term (current) use of anticoagulants

== ENCOUNTER → 2020-02-15 | Outpatient (CLI) | payer MEDICARE ==
[~2020-02-15] MED LIST changes: +ADVAIR HFA 115-12 GM INH; +ALBUTEROL2.5 MG/0.5 INH; +ALLOPURINOL300 MG PO; +AMLODIPINE BESYL5 MG PO; +ASPIRIN ADULT L81 M1 PO; +ATORVASTATIN CA40 M1 PO; +CYMBALTA30 MG PO; +DIOVAN320 MG PO; +ELIQUIS5 M1 PO; +HYDROCODONE-AC1 EAC1 PO; +MAGNESIUM500 MG PO; +METOPROLOL SUC100 M1 PO; +NYSTATIN1 EAC3 MC; +OMEPRAZOLE MAGN20 MG PO; +OMEPRAZOLE20 M2 PO; +VITAMIN D350 MC1 PO
[2020-02-15 11:53] LABS: BASO # 0.1 10*3/uL (0.0-0.1); BASO % 0.4 % (0.0-1.0); EOS # 0.1 10*3/uL (0.0-0.4); HEMATOCRIT 32.7 % (37.0-47.0); LYMPH # 1.8 10*3/uL (1.3-4.4); LYMPH % 14.1 % (27.0-41.0); MEAN CELL VOLUME 93.7 fl (81.0-99.0); MEAN CORPUSCULAR HGB 25.8 pg (27.0-31.0); MEAN CORPUSCULAR HGB CONC 27.5 g/dl (33.0-37.0); MEAN PLATELET VOLUME 10.5 fl (9.6-12.3); MONO # 0.7 10*3/uL (0.1-1.0); MONO % 5.7 % (3.0-9.0); NEUT % 78.4 % (47.0-73.0); NUCLEATED RED BLOOD CELL 0.2 % (0.0-0.0); PLATELET COUNT AUTOMATED 322 10*3/uL (130-400); RED BLOOD COUNT 3.49 10*6/uL (4.10-5.10); RED CELL DISTRI WIDTH 16.8 % (0-14.5); WHITE BLOOD COUNT 12.7 10*3/uL (4.8-10.8)
[2020-02-15 12:24] LABS: ALBUMIN 3.2 gm/dl (3.1-4.5); BUN 21 mg/dl (7-24); CHLORIDE 107 mmol/L (98-107); CREATININE 0.95 mg/dL (0.55-1.02); IRON 28 ug/dL (50-170); POTASSIUM 4.5 mmol/L (3.5-5.1); SGOT/AST 17 IU/L (3-35); SGPT/ALT 26 U/L (12-78); SODIUM 145 mmol/L (136-145); TOTAL IRON BINDING CAPACITY 303 ug/dl (250-450); TOTAL PROTEIN 6.8 gm/dL (6.4-8.2)
[2020-02-15 12:25] LABS: ALKALINE PHOSPHATASE 81 U/L (45-117)
== END | disposition home or self-care (01) ==
LOC: LAB 11:25
PROVIDERS: Internal Medicine
DX: D50.0 Iron deficiency anemia secondary to blood loss (chronic) (principal); I10 Essential (primary) hypertension

== ENCOUNTER → 2020-04-08 | Outpatient (CLI) | payer MEDICARE ==
[~2020-04-08] MED LIST changes: +ACETAZOLAMIDE250 MG PO; +ADVAIR HFA 115-12 GM INH; +ALBUTEROL2.5 MG/0.5 INH; +ALDACTONE25 MG PO; +ALLOPURINOL300 MG PO; +AMLODIPINE BESYL5 MG PO; +ASPIRIN ADULT L81 M1 PO; +ATORVASTATIN CA40 M1 PO; +BUDESONIDE0.5 MG/2 M NEB; +CYMBALTA30 MG PO; +DIOVAN320 MG PO; +DOXYCYCLINE100 M3 PO; +ELIQUIS5 M1 PO; +HYDROCODONE-AC1 EAC1 PO; +LASIX40 MG PO; +LOSARTAN POTAS100 M1 PO; +MAGNESIUM500 MG PO; +METOPROLOL SUC100 M1 PO; +NYSTATIN1 EAC3 MC; +OMEPRAZOLE MAGN20 MG PO; +OMEPRAZOLE20 M2 PO; +VITAMIN D350 MC1 PO
[2020-04-08 12:45] LABS: CREATININE 1.14 mg/dL (0.55-1.02); POTASSIUM 3.5 mmol/L (3.5-5.1)
== END | disposition home or self-care (01) ==
LOC: LAB 11:35
PROVIDERS: ATTEND Internal Medicine
DX: N18.3 Chronic kidney disease, stage 3 (moderate) (principal)

== ENCOUNTER → 2020-04-16 | Outpatient (CLI) | payer MEDICARE ==
[2020-04-16 10:34] LABS: BASO % 0.2 % (0.0-1.0); EOS # 0.6 10*3/uL (0.0-0.4); EOS % 2.9 % (1.0-4.0); HEMATOCRIT 37.4 % (37.0-47.0); MEAN CELL VOLUME 86.4 fl (81.0-99.0); MEAN CORPUSCULAR HGB 24.5 pg (27.0-31.0); MEAN CORPUSCULAR HGB CONC 28.3 g/dl (33.0-37.0); MEAN PLATELET VOLUME 10.3 fl (9.6-12.3); MONO # 1.2 10*3/uL (0.1-1.0); MONO % 6.2 % (3.0-9.0); NEUT % 74.1 % (47.0-73.0); PLATELET COUNT AUTOMATED 363 10*3/uL (130-400); RED BLOOD COUNT 4.33 10*6/uL (4.10-5.10); RED CELL DISTRI WIDTH 17.9 % (0-14.5); WHITE BLOOD COUNT 18.9 10*3/uL (4.8-10.8)
[2020-04-16 11:04] LABS: CREATININE 1.16 mg/dL (0.55-1.02)
== END | disposition home or self-care (01) ==
LOC: LAB 10:08
PROVIDERS: ATTEND Nurse Practitioner Family
DX: D64.9 Anemia, unspecified (principal); E83.41 Hypermagnesemia; N18.3 Chronic kidney disease, stage 3 (moderate)

== ENCOUNTER → 2020-09-15 | Outpatient (CLI) | payer MEDICARE ==
[2020-09-15 16:46] LABS: BASO # 0.1 10*3/uL (0.0-0.1); BASO % 0.4 % (0.0-1.0); EOS # 0.5 10*3/uL (0.0-0.4); EOS % 3.4 % (1.0-4.0); HEMATOCRIT 41.2 % (37.0-47.0); LYMPH # 2.3 10*3/uL (1.3-4.4); LYMPH % 17.2 % (27.0-41.0); MEAN CELL VOLUME 88.4 fl (81.0-99.0); MEAN CORPUSCULAR HGB 26.8 pg (27.0-31.0); MEAN CORPUSCULAR HGB CONC 30.3 g/dl (33.0-37.0); MEAN PLATELET VOLUME 9.8 fl (9.6-12.3); MONO # 1.2 10*3/uL (0.1-1.0); MONO % 8.6 % (3.0-9.0); NEUT # 9.3 10*3/uL (2.3-7.9); PLATELET COUNT AUTOMATED 326 10*3/uL (130-400); RED BLOOD COUNT 4.66 10*6/uL (4.10-5.10); RED CELL DISTRI WIDTH 19.2 % (0-14.5); WHITE BLOOD COUNT 13.3 10*3/uL (4.8-10.8)
[2020-09-15 17:13] LABS: IRON 40 ug/dL (50-170); TOTAL IRON BINDING CAPACITY 284 ug/dl (250-450)
== END | disposition home or self-care (01) ==
LOC: LAB 16:29
PROVIDERS: ATTEND Internal Medicine
DX: E61.1 Iron deficiency (principal)

== ENCOUNTER 2021-09-20 12:36 | Inpatient (IN) | payer MEDICARE ==
[~2021-09-20] VITALS: Ht 151.1 cm; Wt 92.3 kg
[2021-09-20] VITALS: BP 148/69
[2021-09-20 12:40] VITALS: BP 140/70
[2021-09-20 13:27] LABS: BASO # 0.1 10*3/uL (0.0-0.1); BASO % 0.5 % (0.0-1.0); EOS # 0.7 10*3/uL (0.0-0.4); EOS % 6.8 % (1.0-4.0); LYMPH # 1.4 10*3/uL (1.3-4.4); LYMPH % 13.9 % (27.0-41.0); MEAN CELL VOLUME 93.1 fl (81.0-99.0); MEAN CORPUSCULAR HGB 27.3 pg (27.0-31.0); MEAN CORPUSCULAR HGB CONC 29.4 g/dl (33.0-37.0); MEAN PLATELET VOLUME 9.8 fl (9.6-12.3); MONO # 0.8 10*3/uL (0.1-1.0); MONO % 8.2 % (3.0-9.0); NEUT % 70.1 % (47.0-73.0); PLATELET COUNT AUTOMATED 296 10*3/uL (130-400); RED BLOOD COUNT 3.33 10*6/uL (4.10-5.10); RED CELL DISTRI WIDTH 16.7 % (0-14.5)
[2021-09-20 13:31] LABS: ABG BASE EXCESS 4.9 mmol/L (-2.0-2.0); ARTERIAL BLOOD GAS PH 7.387 (7.35-7.45); ARTERIAL BLOOD GAS PO2 68.5 (80-90)
[2021-09-20 13:39] VITALS: BP 145/73
[2021-09-20 13:45] LABS: BUN 24 mg/dl (7-24); CHLORIDE 108 mmol/L (98-107); CREATININE 0.99 mg/dL (0.55-1.02); POTASSIUM 4.3 mmol/L (3.5-5.1); SODIUM 143 mmol/L (136-145)
[2021-09-20] MEDS ORDERED: ADVAIR HFA 115-12 GM IH (15:21)
[2021-09-20] MEDS ORDERED: AMLODIPINE BESYL5 MG PO (15:21)
[2021-09-20] MEDS ORDERED: VALSARTAN320 MG PO (15:22)
[2021-09-20] MEDS ORDERED: TYLENOL EXTRA500 MG PO (15:28)
[2021-09-20] MEDS ORDERED: ASPIRIN CHEWABL81 MG PO (15:28)
[2021-09-20 16:00] VITALS: BP 148/69
[2021-09-20 18:26] VITALS: BP 158/72
[2021-09-20 20:00] VITALS: BP 158/72
[2021-09-21] VITALS: BP 125/49
[2021-09-21 05:30] LABS: BUN 25 mg/dl (7-24); CHLORIDE 108 mmol/L (98-107); CREATININE 0.82 mg/dL (0.55-1.02); POTASSIUM 4.6 mmol/L (3.5-5.1); SODIUM 143 mmol/L (136-145)
[2021-09-21 05:35] LABS: CHOLESTEROL 101 mg/dL (<200); FREE T4 1.21 ng/dl (0.76-1.46); LDL CHOLESTEROL 39 mg/dL (9-159); TRIGLYCERIDES 65 mg/dl (<150)
[2021-09-21 05:41] LABS: THYROID STIM HORMONE (HS) 0.677 uIU/ml (0.358-4.75)
[2021-09-21 06:16] LABS: BASO % 0.2 % (0.0-1.0); HEMATOCRIT 30.6 % (37.0-47.0); LYMPH # 0.9 10*3/uL (1.3-4.4); LYMPH % 17.7 % (27.0-41.0); MEAN CELL VOLUME 92.7 fl (81.0-99.0); MEAN CORPUSCULAR HGB 27.6 pg (27.0-31.0); MEAN CORPUSCULAR HGB CONC 29.7 g/dl (33.0-37.0); MEAN PLATELET VOLUME 10.6 fl (9.6-12.3); MONO # 0.1 10*3/uL (0.1-1.0); MONO % 2.5 % (3.0-9.0); NEUT # 3.9 10*3/uL (2.3-7.9); NEUT % 79.2 % (47.0-73.0); PLATELET COUNT AUTOMATED 308 10*3/uL (130-400); RED CELL DISTRI WIDTH 16.5 % (0-14.5); WHITE BLOOD COUNT 4.9 10*3/uL (4.8-10.8)
[2021-09-21 08:00] VITALS: BP 113/93
[2021-09-21 08:14] LABS: VITAMIN D, 25-HYDROXY 68.8 ng/mL (30-100)
[2021-09-21 08:15] LABS: FERRITIN 92.8 ng/mL (10.0-291.0)
[2021-09-21 12:00] VITALS: BP 131/72
[2021-09-21 16:00] VITALS: BP 137/79
[2021-09-21 20:00] VITALS: BP 146/73
[2021-09-22] VITALS: BP 153/69
[2021-09-22 05:13] LABS: ALKALINE PHOSPHATASE 90 U/L (45-117); BUN 30 mg/dl (7-24); CHLORIDE 108 mmol/L (98-107); CREATININE 0.89 mg/dL (0.55-1.02); LDH 226 U/L (84-246); POTASSIUM 4.8 mmol/L (3.5-5.1); SGOT/AST 18 IU/L (3-35); SGPT/ALT 23 U/L (12-78); SODIUM 141 mmol/L (136-145); TOTAL PROTEIN 6.9 gm/dL (6.4-8.2)
[2021-09-22 06:06] LABS: BASO % 0.1 % (0.0-1.0); HEMATOCRIT 30.9 % (37.0-47.0); LYMPH # 0.9 10*3/uL (1.3-4.4); LYMPH % 11.7 % (27.0-41.0); MEAN CELL VOLUME 94.8 fl (81.0-99.0); MEAN CORPUSCULAR HGB 27.3 pg (27.0-31.0); MEAN CORPUSCULAR HGB CONC 28.8 g/dl (33.0-37.0); MEAN PLATELET VOLUME 10.5 fl (9.6-12.3); MONO # 0.5 10*3/uL (0.1-1.0); NEUT # 6.5 10*3/uL (2.3-7.9); NEUT % 81.8 % (47.0-73.0); PLATELET COUNT AUTOMATED 337 10*3/uL (130-400); RED BLOOD COUNT 3.26 10*6/uL (4.10-5.10); RED CELL DISTRI WIDTH 16.7 % (0-14.5)
[2021-09-22 08:00] VITALS: BP 143/72
[2021-09-22 09:30] VITALS: BP 144/68
[2021-09-22 12:00] VITALS: BP 128/66
[2021-09-22 16:00] VITALS: BP 131/66
[2021-09-22 20:00] VITALS: BP 146/75
[2021-09-23] VITALS: BP 154/76
[2021-09-23 05:56] LABS: ALKALINE PHOSPHATASE 90 U/L (45-117); BUN 35 mg/dl (7-24); CHLORIDE 110 mmol/L (98-107); CREATININE 0.84 mg/dL (0.55-1.02); LDH 209 U/L (84-246); POTASSIUM 4.9 mmol/L (3.5-5.1); SGOT/AST 20 IU/L (3-35); SGPT/ALT 27 U/L (12-78); SODIUM 142 mmol/L (136-145)
[2021-09-23 06:24] LABS: BASO % 0.1 % (0.0-1.0); HEMATOCRIT 31.9 % (37.0-47.0); LYMPH # 1.1 10*3/uL (1.3-4.4); LYMPH % 10.8 % (27.0-41.0); MEAN CELL VOLUME 94.9 fl (81.0-99.0); MEAN CORPUSCULAR HGB 27.4 pg (27.0-31.0); MEAN CORPUSCULAR HGB CONC 28.8 g/dl (33.0-37.0); MEAN PLATELET VOLUME 10.3 fl (9.6-12.3); MONO # 0.4 10*3/uL (0.1-1.0); MONO % 4.3 % (3.0-9.0); NEUT # 8.3 10*3/uL (2.3-7.9); PLATELET COUNT AUTOMATED 351 10*3/uL (130-400); RED BLOOD COUNT 3.36 10*6/uL (4.10-5.10); RED CELL DISTRI WIDTH 16.6 % (0-14.5); WHITE BLOOD COUNT 9.9 10*3/uL (4.8-10.8)
[2021-09-23 08:35] VITALS: BP 128/63
[2021-09-23 09:15] VITALS: BP 120/62
[2021-09-23 09:38] LABS: BILIRUBIN Negative (Negative); BLOOD Negative (Negative); CLARITY Clear (Clear); COLOR Yellow (Yellow); GLUCOSE Negative (Negative); KETONE Negative (Negative); LEUKO ESTERASE Negative (Negative); NITRITE Negative (Negative); SPECIFIC GRAVITY 1.015 (1.001-1.030); UROBILINOGEN 0.2 E.U./dl (0.0-1.0)
[2021-09-23 10:37] LABS: MUCOUS TRACE; WBC 0-2 wbc/hpf (0-5)
[2021-09-23 10:38] LABS: RBC 0-2 rbc/hpf (0-2)
[2021-09-23 12:00] VITALS: BP 168/81
[2021-09-23 16:00] VITALS: BP 135/72
[2021-09-23 20:00] VITALS: BP 132/58
[2021-09-24] VITALS: BP 148/69
[2021-09-24 06:26] LABS: ALKALINE PHOSPHATASE 88 U/L (45-117); BUN 29 mg/dl (7-24); CHLORIDE 107 mmol/L (98-107); CREATININE 0.73 mg/dL (0.55-1.02); LDH 245 U/L (84-246); POTASSIUM 4.5 mmol/L (3.5-5.1); SGOT/AST 19 IU/L (3-35); SGPT/ALT 31 U/L (12-78); SODIUM 139 mmol/L (136-145); TOTAL PROTEIN 6.8 gm/dL (6.4-8.2)
[2021-09-24 08:00] VITALS: BP 99/54
[2021-09-24 12:00] VITALS: BP 98/57
[2021-09-24 16:00] VITALS: BP 129/64
[2021-09-24 20:00] VITALS: BP 124/46
[2021-09-25] VITALS: BP 145/71
[2021-09-25 06:07] LABS: BASO % 0.3 % (0.0-1.0); HEMATOCRIT 34.4 % (37.0-47.0); LYMPH # 1.3 10*3/uL (1.3-4.4); MEAN CELL VOLUME 91.2 fl (81.0-99.0); MEAN CORPUSCULAR HGB 27.3 pg (27.0-31.0); MEAN CORPUSCULAR HGB CONC 29.9 g/dl (33.0-37.0); MEAN PLATELET VOLUME 10.5 fl (9.6-12.3); MONO # 0.7 10*3/uL (0.1-1.0); MONO % 5.8 % (3.0-9.0); NEUT # 9.5 10*3/uL (2.3-7.9); NEUT % 81.5 % (47.0-73.0); PLATELET COUNT AUTOMATED 421 10*3/uL (130-400); RED BLOOD COUNT 3.77 10*6/uL (4.10-5.10); WHITE BLOOD COUNT 11.7 10*3/uL (4.8-10.8)
[2021-09-25 06:18] LABS: CHLORIDE 106 mmol/L (98-107); POTASSIUM 4.4 mmol/L (3.5-5.1); SODIUM 139 mmol/L (136-145)
[2021-09-25 06:29] LABS: ALKALINE PHOSPHATASE 95 U/L (45-117); BUN 27 mg/dl (7-24); CREATININE 0.69 mg/dL (0.55-1.02); SGOT/AST 20 IU/L (3-35); SGPT/ALT 37 U/L (12-78)
[2021-09-25 08:00] VITALS: BP 133/67
[2021-09-25] MEDS ORDERED: DECADRON6 M1 PO (09:49)
[2021-09-25 12:00] VITALS: BP 157/70
== END 2021-09-25 13:20 | disposition home health service (06) | DRG 177 ==
LOC: ED 12:36 → 4E 14:54 → EDHOLD 14:54 → 4E 16:08
PROVIDERS: Internal Medicine Critical Care Medicine; Registered Nurse; Student in an Organized Health Care Education/Training Program; ADMIT Internal Medicine; ATTEND Internal Medicine
PROC: XW033E5 Introduction of Remdesivir Anti-infective into Peripheral Vein, Percutaneous Approach, New Technology Group 5 (ICD-10-PCS; principal; 2021-09-20)
PROC: 5A09357 Assistance with Respiratory Ventilation, Less than 24 Consecutive Hours, Continuous Positive Airway Pressure (ICD-10-PCS; 2021-09-20)
PROC: 5A09357 Assistance with Respiratory Ventilation, Less than 24 Consecutive Hours, Continuous Positive Airway Pressure (ICD-10-PCS; 2021-09-21)
PROC: 5A09357 Assistance with Respiratory Ventilation, Less than 24 Consecutive Hours, Continuous Positive Airway Pressure (ICD-10-PCS; 2021-09-23)
PROC: 5A09357 Assistance with Respiratory Ventilation, Less than 24 Consecutive Hours, Continuous Positive Airway Pressure (ICD-10-PCS; 2021-09-24)
PROC: 5A09357 Assistance with Respiratory Ventilation, Less than 24 Consecutive Hours, Continuous Positive Airway Pressure (ICD-10-PCS; 2021-09-25)
DX: U07.1 COVID-19 (principal); J96.21 Acute and chronic respiratory failure with hypoxia; J96.22 Acute and chronic respiratory failure with hypercapnia; N17.0 Acute kidney failure with tubular necrosis; J12.82 Pneumonia due to coronavirus disease 2019; E87.2 Acidosis; E44.0 Moderate protein-calorie malnutrition; Z68.41 Body mass index [BMI] 40.0-44.9, adult; J44.0 Chronic obstructive pulmonary disease with (acute) lower respiratory infection; E78.5 Hyperlipidemia, unspecified; I10 Essential (primary) hypertension; I25.10 Atherosclerotic heart disease of native coronary artery without angina pectoris; D64.9 Anemia, unspecified; M10.9 Gout, unspecified; F41.1 Generalized anxiety disorder; R73.9 Hyperglycemia, unspecified; D75.839 Thrombocytosis, unspecified; E66.9 Obesity, unspecified; Z95.1 Presence of aortocoronary bypass graft; Z80.1 Family history of malignant neoplasm of trachea, bronchus and lung; Z82.49 Family history of ischemic heart disease and other diseases of the circulatory system; Z79.01 Long term (current) use of anticoagulants; Z79.51 Long term (current) use of inhaled steroids; Z79.899 Other long term (current) drug therapy; Z79.1 Long term (current) use of non-steroidal anti-inflammatories (NSAID)

== ENCOUNTER 2021-09-29 02:46 | Emergency (ER) | payer MEDICARE ==
[~2021-09-29] VITALS: Ht 157.4 cm; Wt 108.9 kg
[~2021-09-29 02:46] MED LIST changes: +ADVAIR HFA 115-12 GM IH; +ASPIRIN CHEWABL81 MG PO; +DECADRON6 M1 PO; +TYLENOL EXTRA500 MG PO; +VALSARTAN320 MG PO
[2021-09-29 02:55] VITALS: BP 000/00
== END 2021-09-29 05:01 ==
LOC: ED 02:46
DX: I46.9 Cardiac arrest, cause unspecified (principal); Z79.899 Other long term (current) drug therapy; Z79.82 Long term (current) use of aspirin; Z90.710 Acquired absence of both cervix and uterus; Z98.890 Other specified postprocedural states